=== PATIENT | female | born 1945 | race Caucasian/White ===

== ENCOUNTER 2019-01-23 10:12 | Day surgery (SDC) | payer MEDICARE ==
[~2019-01-23] VITALS: Ht 167.6 cm; Wt 67.6 kg
[~2019-01-23 10:12] MED LIST: AMLODIPINE5 MG PO; ASPIRIN ADULT L81 M2 PO; LISINOPRIL10 MG PO; LORAZEPAM0.5 MG PO; MULTI FOR HER PO
[2019-01-23 12:29] VITALS: BP 155/67
== END 2019-01-23 12:36 | disposition home or self-care (01) ==
LOC: ENDO 10:12 → ORM 19:15
PROVIDERS: ATTEND Internal Medicine Gastroenterology
PROC: 0DBP8ZX Excision of Rectum, Via Natural or Artificial Opening Endoscopic, Diagnostic (ICD-10-PCS; principal; 2019-01-23)
PROC: 0DBK8ZX Excision of Ascending Colon, Via Natural or Artificial Opening Endoscopic, Diagnostic (ICD-10-PCS; 2019-01-23)
PROC: 3E0H8GC Introduction of Other Therapeutic Substance into Lower GI, Via Natural or Artificial Opening Endoscopic (ICD-10-PCS; 2019-01-23)
DX: Z12.11 Encounter for screening for malignant neoplasm of colon (principal); D12.2 Benign neoplasm of ascending colon; D12.8 Benign neoplasm of rectum; K57.30 Diverticulosis of large intestine without perforation or abscess without bleeding; K64.4 Residual hemorrhoidal skin tags; I10 Essential (primary) hypertension; Z86.010 Personal history of colon polyps

== ENCOUNTER 2019-04-16 10:28 | Inpatient (IN) | payer MEDICARE ==
[~2019-04-16] VITALS: Ht 167.6 cm; Wt 68.0 kg
[2019-05-05] VITALS (10 sets, daily range): BP systolic 100–134; BP diastolic 38–71
--- NOTE | 2019-05-05 10:20 | NUR ---
PT ARRIVED FROM OR VIA BED WITH STAFF, IV SITE IS FREE FROM REDNESS OR EDEMA. DRESSING ON ABD IS CDI. SCD IN PLACE/ FAMILY CAME IN THE ROOM.
--- NOTE | 2019-05-05 12:00 | NUR ---
PT HAS BEEN RESTING IN BED ASSESSMENT IS COMPLETED: IV SITE IS FREE FROM REDNESS OR EDEMA. HR IS REG, PULSES ARE STRONG X4, ABD IS SOFT WITH HYPO BS. DRESSING ON ABD IS CDI. SCD IN PLACE. CONTINUE TO OSBERVE AND MONITOR.
--- NOTE | 2019-05-05 19:04 | NUR ---
RECEIVED REPORT FROM NURSE MARKHAM PATIENT APPEARS TO BE SLEEPING WITH EYES CLOSED EVEN UNLABORED BREATHING CALL LIGHT AT REACH.
--- NOTE | 2019-05-05 20:00 | NUR ---
PATIENT ALERT AND PORIENTED X 4 ABLE TO MAKE NEEDS KNOWN, S/P RT HEMICOLECTOMY, WITH AN ONGOING IV OF LR @150CC/HR INFUSING WELL ON LEFT WRIST, LBM 05/03, PATIENT ASSISTED TO BATHROOM, STEADY GAIT, HYPOACTIVE BOWEL SOUNDS ON ALL QUADRANTS, OFFERED ICE CHIPS, DENIES NAUSEA, PS 10/26 PATIENT STATE THE TOLERABLE, REFUSED TO TAKE PAIN MEDICATION AT THIS TIME, BREATHING EVEN AND UNLABORED, PATIENT WEARING SCD, INCISION CDI WITH DERMABOND, CALL LIGHT AT REACH.
--- NOTE | 2019-05-06 | NUR ---
PATIENT AWAKE AT THIS TIME, AMBULATED TO TOILET STEADY GAIT, PS 6/10 DUE TORADOL GIVEN AT THIS TIME, WILL REEVALUATE, CURRENTLY RESTING IN BED, WATCHING TV CALL LIGHT AT REACH.
[2019-05-06 04:05] VITALS: BP 108/69
--- NOTE | 2019-05-06 04:17 | NUR ---
PATIENT AWAKE AT THIS TIME, ON SIDE LYING POSITION DENIES PAIN OR DISCOMFORTS AT THIS TIME, SCD ON, CALL LIGHT AT REACH.
--- NOTE | 2019-05-06 07:05 | NUR ---
PT REPORT RECIEVED FROM JOSE SERVIN. PT RESTING. NO S/S OF DISTRESS. CALL LIGHT IN REACH. WILL CONTINUE TO MONITOR.
[2019-05-06 08:16] VITALS: BP 121/63
--- NOTE | 2019-05-06 08:16 | NUR ---
PT A/O X3. RESP EVEN AND UNLABORED. LUNG SOUNDS CLEAR. BOWEL SOUNDS HYPOACTIVE. INCISION TO UMBILICUS; SLIGHTLY REDDENED, 2 SMALL INCISION TO OPPOSITE SIDES OF ABDOMEN; CDI W/ DERMABOND. PT HAS TENDERNESS TO ALL FOUR QUADRANTS. #18 LW LR @150. SITE APPEARS HEALTHY. PT DENIES ANY NEEDS AT THIS TIME. POC DISCUSSED. SAFETY PRECAUTIONS IN PLACE. CALL LIGHT IN REACH. WILL CONTINUE TO MONITOR.
[2019-05-06 11:23] VITALS: BP 114/53
--- NOTE | 2019-05-06 11:53 | NUR ---
PT EATING LUNCH, SITTING UP IN CHAIR. NO C/O PAIN OR NEEDS. IV FLUIDS INFUSING. CALL LIGHT IN REACH. WILL CONTINUE TO MONITOR.
[2019-05-06 16:06] VITALS: BP 111/69
--- NOTE | 2019-05-06 16:07 | NUR ---
PT WATCHING TELEVISION. NO C/O PAIN OR NEEDS. IV FLUIDS INFUSING. CALL LIGHT IN REACH. WILL CONTINUE TO MONITOR.
--- NOTE | 2019-05-06 19:12 | NUR ---
REPORT RECEIVED FROM JUDITH REED. PT RESTING IN BED. NO S/S OF DISTRESS AT THIS TIME. SAFETY PRECAUTIONS IN PLACE. WILL CONTINUE TO MONITOR.
[2019-05-06 19:45] VITALS: BP 123/67
--- NOTE | 2019-05-06 21:35 | NUR ---
PT RESTING IN BED WITH EYES CLOSED. RESPIRATIONS EVEN AND UNLABORED ON RA. NO S/S OF DISTRESS. WILL CONTINUE TO MONITOR.
[2019-05-07 00:10] VITALS: BP 129/79
--- NOTE | 2019-05-07 00:26 | NUR ---
PT RESTING IN BED. ALERT AND ORIENTED. RESPIRATIONS EVEN AND UNLABORED ON RA. LUNGS SOUND CLEAR. PEDAL PULSE ARE STRONG. IV #18 LW PAITENT AND APPEARS HEALTHY. SAFETY PRECAUTIONS IN PLACE. WILL CONTINUE TO MONITOR.
--- NOTE | 2019-05-07 04:13 | NUR ---
PT RESTING IN BED WITH EYES CLOSED. RESPIRATIONS EVEN AND UNLABORED ON RA, NO S/S OF DISTRESS AT THIS TIME. SAFETY PRECAUTIONS IN PLACE. WILL CONTINUE TO MONITOR.
[2019-05-07 04:34] VITALS: BP 124/76
--- NOTE | 2019-05-07 07:00 | NUR ---
PT REPORT RECIEVED FROM JOSE SÁNCHEZ. PT SLEEPING. NO S/S OF DISTRESS. CALL LIGHT IN REACH. WILL CONTINUE TO MONITOR.
[2019-05-07 07:23] VITALS: BP 117/69
--- NOTE | 2019-05-07 07:23 | NUR ---
PT A/O X3. RESP EVEN AND UNLABORED. LUNG SOUNDS CLEAR. BOWEL SOUNDS ACTIVE. 3 INCISIONS TO ABDOMEN; CDI W/ DERMABOND. PT HAS ABDOMINAL TENDERNESS TO ALL FOUR QUADRANTS; DENIES ANY PAIN AT THIS TIME. PT STATES SHE IS PASSING GAS THIS MORNING. STRONG RADIAL/PEDAL PULSES. #18 LW LR @100. SITE APPEARS HEALTHY. POC DISCUSSED. SAFETY PRECAUTIONS IN LACE. INCENTIVE SPIROMETER AT BEDSIDE. CALL LIGHT IN REACH. WILL CONTINUE TO MONITOR.
[2019-05-07 07:58] LABS: HEMATOCRIT 35.1 % (37.0-47.0); HEMOGLOBIN 12.5 g/dl (12.0-16.0); MEAN CELL VOLUME 87.3 fL CALC (80.0-100.0); MEAN CORPUSCULAR HGB 31.1 pG CALC (26.0-32.0); MEAN CORPUSCULAR HGB CONC 35.6 g/L CALC (32.0-36.0); RED BLOOD COUNT 4.02 mill/uL (4.20-5.60); RED CELL DISTRI WIDTH 13.6 % (11.5-15.5)
[2019-05-07 08:35] LABS: ANION GAP 12 (6-22 (CALC)); BUN 10 mg/dL (8-23); BUN/CREATININE RATIO 17 (12-20 (CALC)); CARBON DIOXIDE 25 mmol/l (22-30); CHLORIDE 106 mmol/l (95-108); CREATININE 0.6 mg/dL (0.5-1.0); GFR > 60 ML/MIN (>=60 (CALC)); GFR FOR AFR.AMER. > 60 ML/MIN (>=60 (CALC)); SODIUM 139 mmol/l (137-146)
--- NOTE | 2019-05-07 12:20 | NUR ---
PT EATING LUNCH. NO C/O PAIN OR NEEDS. CALL LIGHT IN REACH. WILL CONTINUE TO MONITOR.
[2019-05-07 15:00] VITALS: BP 107/61
--- NOTE | 2019-05-07 16:15 | NUR ---
PT WATCHING TELEVISION. NO C/O PAIN OR NEEDS. CALL LIGHT IN REACH. WILL CONTINUE TO MONITOR.
--- NOTE | 2019-05-07 20:15 | NUR ---
PT RESTING IN BED, WATCHING TV, NO SIGNS OF DISTRESS NOTED, RESP EVEN AND UNLABORED. DISCUSSED POC, IS AT BEDSIDE DEMONSTRATED IT'S USE. ASSESSMENT COMPLETED, PT VOICES NO NEEDS OR COMPLAINTS AT THIS TIME. INCISIONS TO ABD CDI.
[2019-05-07 22:30] VITALS: BP 126/76
--- NOTE | 2019-05-07 22:41 | NUR ---
PT SITTING IN RECLINER AT BEDSIDE WATCHING TV, PT VOICES NO NEEDS OR COMPLAINTS AT THIS TIME. CALL LIGHT IN REACH,CONTINUE TO MONITOR.
--- NOTE | 2019-05-08 04:46 | NUR ---
PT RESTING IN BED, NO SIGNS OF DISTRESS NOTED, RESP EVEN AND UNLABORED. CALL LIGHT IN REACH,CONTINUE TO MONITOR. PT VOICES NO NEEDS OR COMPLAINTS AT THIS TIME.
[2019-05-08 04:47] VITALS: BP 127/73
--- NOTE | 2019-05-08 06:45 | NUR ---
REPORT RECEIVED. PT RESTING IN BED WILL CONTINUE TO MONITOR.
[2019-05-08 08:15] VITALS: BP 121/72
--- NOTE | 2019-05-08 08:15 | NUR ---
PT RESTING IN BED AWAKE. PT IS ALERT AND ORIENTED X3. SHIFT ASSESSMENT COMPLETED AT THIS TIME. IV PATETN X1. CALL LIGHT IN REACH. WILL CONTINUE TO MONITOR.
[2019-05-08 08:32] VITALS: BP 127/73
--- NOTE | 2019-05-08 11:37 | NUR ---
PT SITTING UP IN CHAIR EATING LUNCH. SPOUSE IN ROOM. RESP ARE EVEN AND UNLABORED. NO DSITRESS NOTED. CALL LIGHT IN REACH. WILL CONTINUE TO MONITOR
--- NOTE | 2019-05-08 12:40 | NUR ---
DR BLISS AT BEDSIDE AT THIS TIME
[2019-05-08] MEDS ORDERED: PERCOCET 5/325M1 TAB PO (12:44)
--- NOTE | 2019-05-08 13:00 | NUR ---
IV site discontinued, cath intact. No edema , no redness, voices no discomfort.
--- NOTE | 2019-05-08 13:20 | NUR ---
ALL DISCHARGE INSTRUCTIONS REVIEWED WITH PATIENT AND SPOUSE BOTH VERBALIZED UNDERSTANDING.
--- NOTE | 2019-05-08 13:30 | NUR ---
Discharge instructions given. Patient verbalizes understanding of same. Discharged in stable condition via Wheelchair to Home with spouse. All belongings sent with pt.
== END 2019-05-08 13:29 | disposition home or self-care (01) | DRG 331 ==
LOC: MS2 04-21 08:00
PROVIDERS: Internal Medicine; ADMIT Surgery; ATTEND Surgery
PROC: 0DTF0ZZ Resection of Right Large Intestine, Open Approach (ICD-10-PCS; principal; 2019-05-05)
DX: D12.0 Benign neoplasm of cecum (principal); I10 Essential (primary) hypertension; Z86.010 Personal history of colon polyps
CPT/HCPCS: J0131; J1100; J2710